=== PATIENT | female | born 1980 | race Caucasian/White ===

== ENCOUNTER → 2022-11-29 | Outpatient (CLI) | payer SELFPAY ==
--- NOTE | 2022-11-29 10:44 | US_ITS ---
STUDY: ULTRASOUND OF THE FEMALE PELVIS - COMPLETE REASON FOR EXAM: Female, 42 years old. Abnormal bleeding LMP: 11/05/2022 TECHNIQUE: Transvaginal TECHNICAL QUALITY: Adequate. COMPARISON: None. FINDINGS: The uterus is anteverted and is in a midline position. The uterus measures 8.9 x 5.7 x 4.3 cm. Normal uterine cervix. The endometrium measures 8.0 mm in thickness, and is hyperechoic. There is no demonstrated endometrial mass. Engineering Program Analyst notes 3 fibroids, largest measures 1.9 cm. One of the fibroids is pedunculated and posterior The right ovary is visualized. The right ovary measures 2.1 x 2.3 x 2.5 cm. There is no right ovarian cyst or ovarian mass. There is no visualized right adnexal mass or complex lesion. There is normal arterial and normal venous vascularity. The left ovary is visualized. The left ovary measures 3.2 x 2.0 x 2.7 cm. There is no left ovarian cyst or ovarian mass. There is no visualized left adnexal mass or complex lesion. There is normal arterial and normal venous vascularity. There is no fluid in the cul-de-sac. Bladder is incompletely distended US/Transvaginal Non- IMPRESSION: Small uterine fibroids No suspicious adnexal mass or free fluid Electronically Signed: Cale Casey MD at 11:59 EST ,
[2022-11-29 12:03] LABS: Absolute Lymphocyte Count 1.68 X10^3/uL (0.83-4.51); Absolute Neutrophil Count 4.5 X10^3/uL (2.0-7.7); Basophil# 0.04 X10^3/uL; Basophil% 0.6 % (0-1); Eosinophil# 0.24 X10^3/uL; Eosinophils% 3.4 % (0-5); Hematocrit 43.5 % (37-47); Hemoglobin 14.2 g/dL (12.0-15.0); Lymphocyte # 1.68 X10^3/ul (0.83-4.51); Lymphocyte % 23.9 % (19-41); Mean Corp Hgb Conc 32.6 g/dL (32-36); Mean Corpuscular Hgb 30.2 pg (27.0-32.0); Mean Corpuscular Volume 92.6 fL (81-99); Mean Platelet Vol. 8.4 fl (6.2-12.0); Monocyte# 0.54 X10^3/uL; Monocyte% 7.7 % (0-10); NRBC Flagged by Analyzer 0 % (0-5); Neutrophil # 4.48 X10^3/uL (2.7-7.7); Neutrophil % 63.7 % (47-70); Platelet Count 307 K/mm3 (150-450); RBC Distribution Width CV 12.8 % (11.6-14.6); RBC Distribution Width SD 43.7 fl (35.1-43.9)
[2022-11-29 12:27] LABS: T4 Free Direct 1.09 ng/dL (0.76-1.46); Thyroid Stim Hormone (TSH) 1.39 uIU/mL (0.358-3.74)
== END | disposition home or self-care (01) ==
PROVIDERS: PCP Family Medicine; Visit Provider Advanced Practice Midwife
DX: N94.6 Dysmenorrhea, unspecified (principal); E07.9 Disorder of thyroid, unspecified; Z83.2 Family history of diseases of the blood and blood-forming organs and certain disorders involving the immune mechanism
CPT/HCPCS: 36415; 76830; 84439; 84443; 85025